=== PATIENT | female | born 1995 | race Caucasian/White ===

== ENCOUNTER 2019-11-28 12:31 | Emergency (ER) | payer OTHER, SELFPAY ==
[2019-11-28 12:42] VITALS: BP 134/96; PULSE 82; RESP 16; TEMP 36.3; O2SAT 99
--- NOTE | 2019-11-28 13:07 | ED.SKABFB ---
HPI - Skin/Abscess/Foreign Bdy General Chief complaint: Skin/Abscess/Foreign Body Stated complaint: rash Time Seen by Provider: 11/28/19 13:07 Source: patient Mode of arrival: ambulatory Limitations: no limitations History of Present Illness HPI narrative: Daysi Mederos is a 24 yo female with a PMH of diabetes and depression who comes to express care for check bite that occurred 3 weeks ago. She pulled the tick off and has developed a rash in last week for the spreading, enlarging, pruritic. Related Data Home Medications Medication Instructions Recorded Confirmed fluoxetine 20 mg PO DAILY 11/28/19 11/28/19 metformin 500 mg PO DAILY 11/28/19 11/28/19 Allergies Allergy/AdvReac Type Severity Reaction Status Date / Time No Known Allergies Allergy Unverified 09/24/15 22:53 Review of Systems Review of Systems: Narrative: CONSTITUTIONAL: Denies fever, chills, sweats. EYES: Denies visual changes, redness, discharge. ENT: Denies rhinorrhea, congestion, sore throat, otalgia. CARDIOVASCULAR: Denies chest pain, palpitations, edema. RESPIRATORY: Denies dyspnea, wheezing, cough GASTROINTESTINAL: Denies abdominal pain, nausea, vomiting, diarrhea. GENITOURINARY: Denies dysuria, hematuria, abnormal discharge SKIN: Denies rash or itching. Spreading enlarging rash inside tick bite NEUROLOGIC: Denies numbness, or focal weakness. PSYCHIATRIC: Denies anxiety or depression. PMFSH Past Medical History Medical History Depression Diabetes Family History Family History Other Diabetes mellitus Social History Social History Smoking status: Never smoker Alcohol intake: current Gender identity (if verbalized by the patient): Female Comments At time of signature, I agree with nursing past medical, surgical, social and family history. There is no relevant family history pertinent to the presenting complaint. This patient states blood pressure is elevated unusually today he has regular follow-up with primary care physician Exam Narrative: Exam Narrative: GENERAL: This is a well-nourished, well-developed patient, in mild distress. HEAD: normocephalic, atraumatic. EYES: If you feel like that we are reinforcing to go in there that she should be checking her blood sugar she says she forgets a lot sclera clear/white. Vision is grossly intact. EARS: External ears normal. Hearing grossly intact. NOSE: External nose normal without nasal discharge, nares without redness, no rhinorrhea. THROAT: Mucous membranes moist, Neck: non-tender CARDIOVASCULAR: Regular rate and rhythm without murmurs, gallops, or rubs. RESPIRATORY: Clear to auscultation. Breath sounds equal bilaterally. No wheezes, rales, or rhonchi. GASTROINTESTINAL: Abdomen soft, non-tender, SKIN: warm, intact with bull's-eye rash on mid back, it is pruritic. About 5 x 6, 2 areas NEURO: awake, alert, and oriented to person, place and time. There were no obvious focal neurologic abnormalities. Steady gait EXTREMITIES: Normal range of motion. BACK: Nontender without deformity Course Course Emergency Course: Discussed with patient possible causes and started on doxycycline 100 mg 1 twice daily x14 days Monitor temperature and use Benadryl lotion for itching Follow-up with PCP-checking blood sugar, discussed with her Vital Signs Vital signs: Vital Signs Temperature 97.3 F L 11/28/19 12:42 Pulse Rate 82 11/28/19 12:42 Respiratory Rate 16 11/28/19 12:42 Blood Pressure 134/96 H 11/28/19 12:42 Pulse Oximetry 99 11/28/19 12:42 Temperature 97.3 F L 11/28/19 12:42 Pulse Rate 82 11/28/19 12:42 Respiratory Rate 16 11/28/19 12:42 Blood Pressure 134/96 H 11/28/19 12:42 Pulse Oximetry 99 11/28/19 12:42 MDM - Skin/Abscess/Foreign Bdy Differential Diagnosis Differential diag
== END 2019-11-28 13:27 | disposition home or self-care (01) ==
PROVIDERS: Emergency Provider Nurse Practitioner; PCP Emergency Medicine
DX: S30.860A Insect bite (nonvenomous) of lower back and pelvis, initial encounter (principal); W57.XXXA Bitten or stung by nonvenomous insect and other nonvenomous arthropods, initial encounter; F32.9 Major depressive disorder, single episode, unspecified; E11.9 Type 2 diabetes mellitus without complications
CPT/HCPCS: 99213; G0463

== ENCOUNTER 2022-11-22 17:52 | Emergency (ER) | payer OTHER, MEDICAID, SELFPAY ==
[2022-11-22 17:52] VITALS: BP 138/80; PULSE 92; RESP 18; TEMP 36.9; O2SAT 99
[2022-11-22 17:54] VITALS: BP 138/80; PULSE 101; RESP 19; TEMP 36.9; O2SAT 98
--- NOTE | 2022-11-22 18:03 | ED.SKABFB ---
HPI - Skin/Abscess/Foreign Bdy General Chief complaint: Unspecified Stated complaint: Thrush/yeast infection Time Seen by Provider: 11/22/22 17:53 Source: patient and RN notes reviewed Mode of arrival: ambulatory Limitations: no limitations History of Present Illness HPI narrative: Patient states that she used was on Macrobid for as an antibiotic for possible UTI but then was also diagnosed with bacterial vaginosis and did a 2nd antibiotic. She now has a white vaginal discharge and itching a of her labia. She also has a thick white film in her mouth consistent with thrush. complaint: rash Onset (ago): day(s) (2) Tetanus up to date: yes Location: generalized (mouth) Severity: moderate Quality: burning and dull Pain Consistency: constant Relieving factors: none Exacerbating factors: none Context: recent illness Associated symptoms: denies other symptoms Treatments prior to arrival: none Related Data Allergies Allergy/AdvReac Type Severity Reaction Status Date / Time No Known Allergies Allergy Verified 11/22/22 18:09 [facility] Past Medical History Medical History (Updated 11/22/22 @ 18:47 by Randy Perez MD) Depression Diabetes Surgical History Surgical History (Updated 11/22/22 @ 18:47 by Randy Perez MD) History of section Hx of cholecystectomy Family History Family History Other Diabetes mellitus Social History Social History Smoking status: Never smoker Alcohol intake: current Gender identity (if verbalized by the patient): Female Exam Const: General: healthy appearing, no acute distress and alert Nutritional Appearance: well nourished Orientation/consciousness: patient oriented x3 Limitations: no limitations Other: Female tech in the room during examination. HENMT: Head: normal to inspection Ears: external ears normal Face/Nose/Sinus: Normal external nose present Face and sinus: normal facial exam Mouth: Yes Abnormal oral and palatal mucosa present erythematous and white patches and Yes tongue abnormal with white coating Eyes: Conjunctivae: conjunctivae normal Pupils: Equal, round and reactive pupils present EOM: EOMs intact bilaterally Neck: Neck: normal visual inspection Resp: Effort & Inspection: normal respiratory effort Auscultation: clear to auscultation bilaterally Cardio: Rate: regular rate Rhythm: regular rhythm GI: Auscultation: normal bowel sounds Back/Spine/Pelvis: Cervical Spine: cervical ROM normal Thoracic/Lumbar Spine: thoraco-lumbar ROM normal Skin: General skin exam: normal color Neuro: General: patient oriented x3, moves all extremities, no focal motor deficits and CN's II-XI intact bilaterally Speech: normal speech Gait exam (Neuro): Normal gait present Extrem: General: normal to inspection and no clubbing, cyanosis or edema Psych: Mental Status: mental status grossly normal Affect: normal affect Attitude: cooperative Course Vital Signs Vital signs: Vital Signs Temperature 36.9 C 11/22/22 17:54 Pulse Rate 101 H 11/22/22 17:54 Respiratory Rate 11/22/22 17:54 Blood Pressure 138/80 11/22/22 17:54 Pulse Oximetry 98 11/22/22 17:54 Oxygen Delivery Room Air 11/22/22 17:54 Temperature 36.9 C 11/22/22 17:54 Pulse Rate 101 H 11/22/22 17:54 Respiratory Rate 11/22/22 17:54 Blood Pressure 138/80 11/22/22 17:54 Pulse Oximetry 98 11/22/22 17:54 Oxygen Delivery Room Air 11/22/22 17:54 MDM - Skin/Abscess/Foreign Bdy Differential Diagnosis Differential diagnosis: Likely other ( oral candidiasis and vaginal candidiasis due to antibiotics.) Discharge Plan Discharge Clinical Impression: Candidiasis of vagina, Oral thrush Patient Disposition: Home, Self-Care Condition: Stable Instructions: Oral Candidiasis (ED), Yeast Infection (ED) Prescriptions: N
== END 2022-11-22 18:20 | disposition home or self-care (01) ==
LOC: CHSED 18:14
PROVIDERS: Emergency Provider Emergency Medicine; PCP Emergency Medicine
DX: B37.31 Acute candidiasis of vulva and vagina (principal); B37.0 Candidal stomatitis; E11.9 Type 2 diabetes mellitus without complications
CPT/HCPCS: 99283

== ENCOUNTER 2024-09-08 17:40 | Emergency (ER) | payer SELFPAY ==
--- NOTE | ~2024-09-08 | CT_ITS ---
EXAMINATION: CT brain wo con DATE: 09/08/2024 18:14 INDICATION: head injury . TECHNIQUE: Computed tomography (CT) of the head was performed without intravenous contrast. The mA wa s adjusted according to patient size. Iterative reconstruction technique was employed. The dose-lengt h product was 605.33 mGy-cm. COMPARISON: None. FINDINGS: No acute intracranial hemorrhage or extra-axial fluid collection. No hydrocephalus, mass, or herniation. No acute ischemic infarct. Unremarkable dural venous sinus attenuation. No acute osseous abnormality. The aerated spaces are clear. IMPRESSION: No acute intracranial process. Reviewed, dictated and finalized at location K.
[2024-09-08 17:40] VITALS: BP 139/91; PULSE 107; RESP 18; TEMP 36.6; O2SAT 100
--- OUTSIDE RECORDS SUMMARY | 2024-09-08 17:48 | XMS_ITS | Data Portability ---
Author Organization [facility] TEEClari Chavez Address [address] [place] [address] Assessment Encounter Date Assessment Date Assessment LastModified by Organization Details LastModified Time 01/28/2018 01/28/2018 Almost 37 weeks, doing well with sugar control, repeat c/s on 02/18 Not available 01/28/2018 14:45:57 02/04/2018 02/04/2018 Almost 38 weeks, sugars stable, repeat c/s in 2 weeks per pt request weekly NSTs Not available 02/04/2018 15:58:18 02/11/2018 02/11/2018 c/s BTL in 1 week, NST this week for diabetes f/u Not available 02/11/2018 15:08:37 02/22/2018 02/22/2018 ramiro out, steri-strips on, incision looks great f/u 1 week Not available 02/22/2018 14:42:43 03/18/2018 03/18/2018 Discussed PPD. No SI/HI, but occ tearful, occ overwhelmed will try some prozac and come back in a week for f/u and PP exam Not available 03/18/2018 14:10:32 Plan of Treatment Reminders Order Date Submit Date Provider Last Modified By Organization Details Last Modified Time Details Appointments None recorded. Lab urinalysi s, dipstick 2017 018 In-Office Order, Internal Use Only DO Not Attach Compendium DO Not Attach Compendium, Do Not Delete/merge, [id number] 8 15:08:51 urinalysi s, dipstick 2017 018 In-Office Order, Internal Use Only DO Not Attach Compendium DO Not Attach Compendium, Do Not Delete/merge, [id number] 8 15:58:19 urinalysi s, dipstick 2017 018 In-Office Order, Internal Use Only DO Not Attach Compendium DO Not Attach Compendium, Do Not Delete/merge, [id number] 14:45:58 Referral None recorded. Procedures None recorded. Surgeries None recorded. Imaging None recorded. Medication Orders Prozac 20 mg capsule 2018 019 INTERFACE [facility] #[id number], [address], [place], [place], [id number], 9 14:10:39 Patient TargetsNo targets recorded. Patient Instructions Encounter Date Encounter Id Patient Instructions Last Modified By Organization Details Last Modified Time 02/04/2018 [id number] gestational diabetes: care instructions Not available 02/04/2018 15:58:19 02/11/2018 [id number] gestational diabetes: care instructions Not available 02/11/2018 15:08:51 03/18/2018 [id number] depression after childbirth: care instructions Not available 03/18/2018 14:10:33 stress in parent s of infants: care instructions Not available 03/18/2018 14:10:33 Reason for Referral None Reported. Results Created Date Observation Date Name Description Value Unit Range Abnormal Flag Note LastModifiedBy Organization Detail LastModifiedTime 02/12/20 18 02/11/2018 urina lysis , dipst ick Protein Trace Not Available In-Office Order Internal Use Only DO Not Attach Compendium DO Not Attach Compendium, Do Not Delete/merge, [id number] 02/11/2018 14:35:42 02/12/20 18 02/11/2018 urina lysis , dipst ick Glucose Negati ve Not Available In-Office Order Internal Use Only DO Not Attach Compendium DO Not Attach Compendium, Do Not Delete/merge, [id number] 02/11/2018 14:35:42 02/05/20 18 02/04/2018 urina lysis , dipst ick Protein Trace Not Available In-Office Order Internal Use Only DO Not Attach Compendium DO Not Attach Compendium, Do Not Delete/merge, [id number] 02/04/2018 15:48:34 02/05/20 18 02/04/2018 urina lysis , dipst ick Glucose Negati ve Not Available In-Office Order Internal Use Only DO Not Attach Compendium DO Not Attach Compendium, Do Not Delete/merge, [id number] 02/04/2018 15:48:34 01/29/20 18 01/28/2018 urina lysis , dipst ick Protein Negati ve Not Available In-Office Order Internal Use Only DO Not Attach Compendium DO Not Attach Compendium, Do Not Delete/merge, [id number] 01/28/2018 14:34:58 01/29/20 18 01/28/2018 urina lysis , dipst ick Glucose Negati ve Not Available In-Office Order Internal Use Only DO Not Attach Compendium DO Not Attach Compendium, Do Not Delete/merge, [id number] 01/28/2018 14:34:58 01/15/20 18 01/14/2018 urina lysis , dipst ick Protein Negati ve Not Available In-Office Order Internal Use Only DO Not Attach Compendium DO Not Attach Compendium, Do Not Delete/merge, [id number] 01/14/2018 14:53:01 01/15/20 18 01/14/2018 urina lysis , dipst ick Glucose Negati ve Not Available In-Office Order Internal Use Only DO Not Attach Compendium DO Not Attach Compendium, Do Not Delete/merge, [id number] 01/14/2018 14:53:01 01/01/20 18 12/31/2017 urina lysis , dipst ick Protein Negati ve Not Available In-Office Order Internal Use Only DO Not Attach Compendium DO Not Attach Compendium, Do Not Delete/merge, [id number] 12/31/2017 16:01:01 01/01/20 18 12/31/2017 urina lysis , dipst ick Glucose Negati ve Not Available In-Office Order Internal Use Only DO Not Attach Compendium DO Not Attach Compendium, Do Not Delete/merge, [id number] 12/31/2017 16:01:01 Result Notes None recorded. Problems No Known Problems Procedures Surgical History Date Name Laterality Status Provider Name and Address Organization Details Recorded Time 02/23/20 18 Suture/Staple removal completed Maikel Kang MD Attn: Accounting, [address] , [place], [address], [facility] 02/22/2018 14:42:19 04/22/19 18 Cholecystectomy completed Kaycee Parsons MA [facility] 09/19/2017 10:52:38 09/17/19 15 Caesarean Section completed Kaycee Parsons MA [facility] 09/19/2017 10:51:47 Imaging Results None recorded. Procedure Notes None recorded. Medical Equipment None Reported. Allergies No known drug allergies Medications Name Sig Start Date Stop Date Status Note LastModified by Organization Details LastModified Time metformin 500 mg tablet active Not Available Not Available Not Available nitrofuranto in macrocrystal 50 mg capsule active Not Available Not Available Not Available fluconazole 150 mg tablet active Not Available Not Available Not Available clarithromyc in 500 mg tablet active Not Available Not Available Not Available hydrocodone 5 mg-acetamino phen 325 mg tablet active Not Available Not Available Not Available metronidazol e 250 mg tablet active Not Available Not Available Not Available sulfamethoxa zole 800 mg-trimethop rim 160 mg tablet active Not Available Not Available Not Available terconazole 80 mg vaginal suppository Insert 1 suppository every day by vaginal route for 3 days. active Not Available Not Available No t Available Humulin R Regular U-100 Insulin 100 unit/mL injection solution active Not Available Not Available Not Available Prozac 20 mg capsule Take 1 capsule every day by oral route. 2018 active Not Available Not Available Not Avai lable Humulin N NPH U-100 Insulin (isophane susp) 100 unit/mL subcutaneous active Not Available Not Available Not Available omeprazole 20 mg capsule,momo yed release active Not Available Not Available Not Available insulin syringe U-100 with needle 1 mL 31 gauge x 07/18 active Not Available Not Available Not Available ibuprofen 600 mg tablet active Not Available Not Available Not Available nitrofuranto in monohydrate/ macrocrystal s 100 mg capsule Take 1 capsule every 12 hours by oral route for 7 days. active Not Available Not Available Not Available metformin active Not Available Not Noreen ilable Not Available OneTouch Ultra2 Meter kit active Not Available Not Available Not Available BD Insulin Syringe Ultra-Fine (half unit) 0.3 mL 31 gauge x 5/16 use four times a day 2017 active Not Available Not Available Not Avai lable RhoGAM Ultra-Filter ed PLUS 1,500 unit (300 mcg) intramuscula r syringe Inject 1 syringe by intramuscul ar route. 2017 active Not Available Not Available Not Avai lable OneTouch Delica Lancets 33 gauge active Not Available Not Available Not Available 28 mg iron-800 mcg tablet active Not Available Not Available N ot Available OneTouch Verio test strips active Not Available Not Available Not Available OneTouch Delica Lancets 30 gauge active Not Available Not Available Not Available BD Insulin Syringe Ultra-Fine 0.3 mL 31 gauge x 5/16 active Not Available Not Available Not Available Blisovi 24 Fe 1 mg-20 mcg (24)/75 mg (4) tablet active Not Available Not Available Not Available OneTouch Ultra Blue Test Strip active Not Available Not Available N ot Available Vitals Date Recorded Body height Body mass index (BMI) Body weight Systolic And Diastolic Provider Name and Address Organization Details Last Updated DateTime 03/18/2018 170.18 cm 38.7 kg/m2 247882.75 g 106/73 mm[Hg] Kaycee Parsons MA [facility] 03/18/2018 14:03:05 Date Recorded Body weight Provider Name an d Address Organization Details Last Updated DateTime 01/28/2018 [id number] francia Kang MD Attn: Accounting,[address] [place], [address], [facility] 01/28/2018 14:45:29 Date Recorded Body height Body mass index (BMI) Systolic And Diastolic Provider Name and Address Organization Details Last Updated DateTime 01/28/2018 170.18 cm 39.3 kg/m2 116/72 mm[Hg] Kaycee Parsons MA [facility] 01/28/2018 14:34:41 Date Recorded Body weight Provider Name an d Address Organization Details Last Updated DateTime 02/04/2018 242697.432703 g Maikel Kang MD Attn: Accounting,[address] [place], [address], [facility] 02/04/2018 15:57:29 Date Recorded Body height Body mass index (BMI) Systolic And Diastolic Provider Name and Address Organization Details Last Updated DateTime 02/04/2018 170.18 cm 40.1 kg/m2 122/82 mm[Hg] Kaycee Parsons MA [facility] 02/04/2018 15:51:25 Date Recorded Body weight Provider Name an d Address Organization Details Last Updated DateTime 02/11/2018 599640.896545 g Maikel Kang MD Attn: Accounting,[address] [facility], [place], [address], [facility] 02/11/2018 15:08:03 Date Recorded Body height Body mass index (BMI) Systolic And Diastolic Provider Name and Address Organization Details Last Updated DateTime 02/11/2018 170.18 cm 40.7 kg/m2 112/82 mm[Hg] Kaycee Parsons MA [facility] 02/11/2018 14:35:31 Date Recorded Body height Body mass index (BMI) Body weight Systolic And Diastolic Provider Name and Address Organization Details Last Updated DateTime 02/22/2018 170.18 cm 40.2 kg/m2 369715.52 0616 g 126/82 mm[Hg] Kaycee Parsons MA [facility] 02/22/2018 13:58:39 Social History Question Answer Notes LastModified by Organizat ion Details LastModified Time Tobacco Smoking Status Never Smoker Kaycee Parsons MA null, [facility] 09/19/2017 10:51:32 What Was The Date Of Your Most Recent Tobacco Screening? 09/19/2017 Information n ot available 09/26/2018 Sex: Unknown Functional Status None recorded. Mental Status None recorded. Family History Nothing Reported Notes:No Hx. of breast CA Medical History Condition Response Diabetes Y Gynecological History Statement/Question Response Current Control Method Breastfeedi ng/HEADLEY LMP Definite Obstetrics History GPAL:G 2 P 2 0 0 2 Type Value Full Term 2 Living 2 Total 2 Immunizations Vaccine Type Date Status Note Provider Nam e and Address Organization Details Recorded Time Tdap 01/14/2018 completed Not Available [facility] 03/22/2019 02:43:37 Past Encounters Encounter ID Performer Location Encounter Start Date Encounter Closed Date Diagnosis/Indication Diagnosis SNOMED-CT Code Diagnosis ICD10 Code Diagnosis Note [id number] MD Renzo Barillas 14 [address] [facility] [place] [address] 09/19/2017 10:17:13 09/20/2017 12:55:10 Normal 77084511 Z34.82 Past pregn mathieu history of section 726026233 Z98.602 [id number] MD Renzo Barillas 14 OB [address] [facility] [place] [address] 10/22/2017 15:14:55 10/25/2017 12:36:08 Normal 39032891 Z34.82 [id number] MD Renzo Barillas 14 OB [address] [facility] [place] [address] 11/06/2017 14:06:21 11/08/2017 10:57:33 Normal 76305412 Z34.82 Past pregn mathieu history of section 982196194 Z98.235 [id number] MD Renzo Barillas 14 OB [address] [facility] [place] [address] 11/20/2017 14:27:40 11/21/2017 16:44:17 Normal 01203105 Z34.82 Past pregn mathieu history of section 783545073 Z98.990 [id number] MD Renzo Barillas 14 OB [address] [facility] [place] [address] 12/14/2017 11:33:32 12/17/2017 12:34:30 RhD negative 602514243 Z01.83 Normal 2701442 2 Z34.82 Gestationa l diabetes mellitus 02905866 O24.307 [id number] MD Renzo Barillas 14 OB [address] [facility] [place] [address] 12/31/2017 15:38:47 12/31/2017 16:21:03 Normal 08618290 Z34.82 Past pregn mathieu history of section 854698417 Z98.890 Gestationa l diabetes mellitus 86059884 O24.172 [id number] MD Renzo Barillas 14 OB [address] [facility] [place] [address] 01/14/2018 14:34:08 01/18/2018 17:06:50 Administration of diphtheria, pertussis, and tetanus vaccine 439545785 Z23 Normal 2628897 2 Z34.82 Past pregn mathieu history of section 228082544 Z98.508 [id number] MD Renzo Barillas 14 OB [address] [facility] [place] [address] 01/28/2018 14:16:29 01/29/2018 16:42:39 Normal 04290537 Z34.82 [id number] MD Renzo Barillas 14 OB [address] [facility] [place] [address] 02/04/2018 15:13:48 02/04/2018 16:29:45 Normal 29548138 Z34.82 Gestationa l diabetes mellitus 23732629 O24.374 [id number] MD Renzo Barillas 14 OB [address] [facility] [place] [address] 02/11/2018 14:08:37 02/12/2018 10:12:59 Normal 83480335 Z34.82 Past pregn mathieu history of section 996851806 Z98.890 Gestationa l diabetes mellitus 17291174 O24.030 [id number] MD Renzo Barillas [address] [place] [address] [place] [address] 02/22/2018 13:43:21 02/22/2018 14:43:19 Removal of ramiro 07881552 Z48.02 [id number] MD Renzo Barillas 14 OB [address] [facility] [place] [address] 03/18/2018 13:50:43 03/21/2018 09:06:30 depression 97873218 F53.0 Health Concerns Section Related Observation LastModified by Organization Detai ls LastModified Time None Recorded Concern Status LastModified by Organization Details LastModified Time None Recorded Advance Directives Directive None Recorded Payers Insurance Date Sequence Insurance Name Policy Number Policy Irvin Covered Member ID Irvin Member ID Guarantor Name 12/20/2018 1 [facility] - DOS PRIOR TO 2020 (MEDICAID REPLACEMENT - HMO) Daysi Mederos [id number] Daysi Mederos 10/22/2017 1 *SELF PAY* Memo Mederos 09/19/2017 SLIDING FEE SCHEDULE - DISCOUNT Daysi Mederos 12/04/2017 1 [place] Daysi Mederos [id number] Daysi Mederos 10/22/2017 1 [facility] (MEDICAID HMO) Daysi Mederos [id number] Daysi Mederos 10/22/2017 1 [facility] (MEDICAID HMO) Daysi Mederos [id number] Daysi Mederos 03/15/2018 1 [facility] (MEDICAID HMO) Daysi Mederos [id number] Daysi Mederos OBGyn Episode Ob Episode Information Episode Created Date Number of Fetuses Patient Bloodtype Patient rh Status Prepregnancy Weight lbs Domestic Partner Domestic Partner Phone Father Name Driver Courier Status 09/20/19 18 1 O Negative [facility] CLOSED Fetus Data First Name Last Name Admitted to NICU Weight (g) Sex Living Outcome Pediatric Complications Fetus ID Race Codes Race Delivery Type Alcon Moler false [phone] 5 F true Full Term [id number] White Helder Calculation Initial Helder Date Initial Exam Date Initial Exam Provider Initial Ultrasound Date Last Menstrual Period Date Ultra Sound Weeks Gestation 02/19/2018 09/19/2017 10/31/2017 05/15/2017 24 Eighteen To Twenty Week Helder Update Ultra Sound Date Fundal Height At Umbil Quickening Date Ultra Sound Latest Weeks Gestation Final Helder Confirmed By Final Helder Confirmed Date Final Helder Date Ultra Sound Latest Days Gestation 0 [email or web address] 02/21/2018 02/20/20 18 0 Pre-patricia Flowsheet Flowsheet Date 09/19/2017 Peterson Score Blood Edema Fundus Height Fundus Units Glucose Ketones Leukocytes Nitrite Labor Signs Protein Cervic Dilation Cervic Effacement Cervic Station 15 wks Type Weight in lbs Pre/Post Dialysis Refused Weight 243.936079024250 BP Diastolic BP Location Tested BP Systolic BP Type 76 118 sitting Fetus Heart Rate Present A 154 Present Fetus Movement Comments Hx of previous c/s - plan re peat at 39 weeks this time.Currently self pay - awaiting medical card.Exam more c/s 14-15 weeks than 18 ; pt. does have hx of irregular periodswill get labs from previous place, possibly get US after medical card arranged Flowsheet Date 10/22/2017 Peterson Score Blood Edema Fundus Height Fundus Units Glucose Ketones Leukocytes Nitrite Labor Signs Protein Cervic Dilation Cervic Effacement Cervic Station 20 wks Type Weight in lbs Pre/Post Dialysis Refused Weight 242.055461546884 BP Diastolic BP Location Tested BP Systolic BP Type 76 112 sitting Fetus Heart Rate Present A 145 Present Fetus Movement A Yes Comments Will redo labs today as we tayler daley never received any from previous [facility] diabetes center visit, was apparently diagnosed as diabetic and put on metformin in past. Off it since lost medical card. Says she occ. has a 250 post prandial sugar. Flowsheet Date 11/06/2017 Peterson Score Blood Edema Fundus Height Fundus Units Glucose Ketones Leukocytes Nitrite Labor Signs Protein Cervic Dilation Cervic Effacement Cervic Station 24 wks Type Weight in lbs Pre/Post Dialysis Refused Weight 239.844485145051 BP Diastolic BP Location Tested BP Systolic BP Type 82 102 sitting Fetus Heart Rate Present A 155 Present Fetus Movement A Yes Comments Doing OK, seeing diabetes ce nter, likely insulin after daily sugar logs evaluatedGirl on US Flowsheet Date 11/20/2017 Peterson Score Blood Edema Fundus Height Fundus Units Glucose Ketones Leukocytes Nitrite Labor Signs Protein Cervic Dilation Cervic Effacement Cervic Station none 28 wks Type Weight in lbs Pre/Post Dialysis Refused Weight 238.680067975998 BP Diastolic BP Location Tested BP Systolic BP Type 76 108 sitting Fetus Heart Rate Present A 155 Present Fetus Movement A Yes Comments 27 weeks, will need some ins ulin started as all fastings over 110will start with 7R/10N in a.m. and 8 R/14N in p.m.Has been to diabetes center, no return apt yet scheduled Flowsheet Date 12/14/2017 Peterson Score Blood Edema Fundus Height Fundus Units Glucose Ketones Leukocytes Nitrite Labor Signs Protein Cervic Dilation Cervic Effacement Cervic Station none 30 cm none neg Type Weight in lbs Pre/Post Dialysis Refused Weight 241.742993233071 BP Diastolic BP Location Tested BP Systolic BP Type 76 116 sitting Fetus Heart Rate Present A 148 Present Fetus Movement A Yes Comments doing well, post prandials a ll in the 120sfastings still slightly over 100 ; will increase evening NPH to 16Nor 7r/10n in a.m. and 8r/16n in p.m. Flowsheet Date 12/31/2017 Peterson Score Blood Edema Fundus Height Fundus Units Glucose Ketones Leukocytes Nitrite Labor Signs Protein Cervic Dilation Cervic Effacement Cervic Station 31 cm Type Weight in lbs Pre/Post Dialysis Refused Weight 244.478330500847 BP Diastolic BP Location Tested BP Systolic BP Type 72 106 sitting Fetus Heart Rate Present A 155 Present Fetus Movement A Yes Comments doing well; all fastings und er 100, PPs less than 130keep insulin the same, sign BTL papers next time Flowsheet Date 01/14/2018 Peterson Score Blood Edema Fundus Height Fundus Units Glucose Ketones Leukocytes Nitrite Labor Signs Protein Cervic Dilation Cervic Effacement Cervic Station 33 cm Type Weight in lbs Pre/Post Dialysis Refused Weight 245.085456826317 BP Diastolic BP Location Tested BP Systolic BP Type 72 112 sitting Fetus Heart Rate Present A 141 Present Fetus Movement A Yes Comments doing well, fastings a littl e elevated 100-110 ; will increase evening to 10r/18nleave a.m. same at 7r/10nStart weekly NSTs next weeksigned BTL papers, wants repeat c/s 02/18 ( mom bday) Flowsheet Date 01/28/2018 Peterson Score Blood Edema Fundus Height Fundus Units Glucose Ketones Leukocytes Nitrite Labor Signs Protein Cervic Dilation Cervic Effacement Cervic Station none 34 cm none neg Type Weight in lbs Pre/Post Dialysis Refused Weight 251.27615564842 BP Diastolic BP Location Tested BP Systolic BP Type 72 116 sitting Fetus Heart Rate Present A 141 Present Fetus Movement A Yes Comments doing well, fastings all sti ll under 100.NST weekly until delivery, repeat scheduled for 02/18 Flowsheet Date 02/04/2018 Peterson Score Blood Edema Fundus Height Fundus Units Glucose Ketones Leukocytes Nitrite Labor Signs Protein Cervic Dilation Cervic Effacement Cervic Station 35 cm Type Weight in lbs Pre/Post Dialysis Refused Weight 255.996157091220 BP Diastolic BP Location Tested BP Systolic BP Type 82 122 sitting Fetus Heart Rate Present A 144 Present Fetus Movement A Yes Comments doing well, 2 weeks til repe at c/s ( her picked date), sugars stable, weekly NSTs Flowsheet Date 02/11/2018 Peterson Score Blood Edema Fundus Height Fundus Units Glucose Ketones Leukocytes Nitrite Labor Signs Protein Cervic Dilation Cervic Effacement Cervic Station 36 wks Type Weight in lbs Pre/Post Dialysis Refused Weight 259.621544937929 BP Diastolic BP Location Tested BP Systolic BP Type 82 112 sitting Fetus Heart Rate Present A 140 Present Fetus Movement A Yes Comments doing well, sugars under goo d control, nothing over 130 after eating, fastings less than 100. NST last week was good, will do another one before weekend.Repeat c/s is a week from today. Flowsheet Date 02/22/2018 Peterson Score Blood Edema Fundus Height Fundus Units Glucose Ketones Leukocytes Nitrite Labor Signs Protein Cervic Dilation Cervic Effacement Cervic Station Type Weight in lbs Pre/Post Dialysis Refused With clothes 256.999003936816 BP Diastolic BP Location Tested BP Systolic BP Type 82 126 sitting Fetus Heart Rate Present Fetus Movement Comments Menstrual History Last Menstrual Date Menses Monthly On Bcp Conception Prior Menses Frequency Hcg Plus Date Menarche Onset Age 0305/15/2017 Delivery Information Delivery Date Delivery Type Labor Anesthesia Weeks Gestation Incision Type Labor Labor Length Hrs Delivered By Post Complications Tubal Sterilization Discharge Date Comments 8 Induce d [facility] 39.6 [address] e false Dr. Maikel Kang true 02/20/2018 Discharge Information Feeding Method Contraceptive Method Maternal HG B and HCT Levels Breast Ob Episode Information Episode Created Date Number of Fetuses Patient Bloodtype Patient rh Status Prepregnancy Weight lbs Domestic Partner Domestic Partner Phone Father Name Driver Courier Status 09/20/19 18 1 CLOSED Fetus Data First Name Last Name Admitted to NICU Weight (g) Sex Living Outcome Pediatric Complications Fetus ID Race Codes Race Delivery Type 3742.13 4 M Full Term [id number] Helder Calculation Initial Helder Date Initial Exam Date Initial Exam Provider Initial Ultrasound Date Last Menstrual Period Date Ultra Sound Weeks Gestation 0 Eighteen To Twenty Week Helder Update Ultra Sound Date Fundal Height At Umbil Quickening Date Ultra Sound Latest Weeks Gestation Final Helder Confirmed By Final Helder Confirmed Date Final Helder Date Ultra Sound Latest Days Gestation 0 0 Menstrual History Last Menstrual Date Menses Monthly On Bcp Conception Prior Menses Frequency Hcg Plus Date Menarche Onset Age Delivery Information Delivery Date Delivery Type Labor Anesthesia Weeks Gestation Incision Type Labor Labor Length Hrs Delivered By Post Complications Tubal Sterilization Discharge Date Comments 5 Umbilica l cord wrapped around baby's leg Discharge Information Feeding Method Contraceptive Method Maternal HG B and HCT Levels
--- OUTSIDE RECORDS SUMMARY | 2024-09-08 17:48 | XMS_ITS | Continuity of Care Document ---
Author Organization [facility] Address [address] [place] [address] [place] [address] Phone Care Team Providers Care Rigging And Controls Aircraft Mechanic Name Role Phone Ej Engel MD Unavailable Unavailable Allergies, Adverse Reactions, Alerts Substance Reaction Status Criticality No Known Allergies Active No Inform ation Medications Medication Instructions Dosage Effective Dates (start - stop) Status Comments Flagyl 500 mg tablet take 1 Tablet by or al route 2 times every day 0.5 G - Active Diflucan 150 mg tablet take 1 tablet by oral route once - Active Procedures Procedure Date OFFICE/OUTPATIENT VISIT, EST Advance Directives Directive Yes / No Effective Date File Name No Information Encounters Encounter Description Practice Location Reason(s) For Visit Diagnoses Date Provider Providers Copied on Encounter OFFICE/OUTPA TIENT VISIT, EST [facility], [address] [place], [id number], [place] tel:[phone] [facility] vaginal itching1 (chief complaint)p ainful inercourse (chief complaint) Other specified noninflammatory disorders of vaginaDyspareunia not due to a substanceGoiter [address], [place], [id number] , [place]. tel:[phone] Family History Family Member Type Diagnosis Age At Onset Brother Problem (finding) Alive and well Father Problem (finding) Alive and well Mother Problem (finding) Alive and well Payers Payer name Insurance type Covered constitution party ID Authoriza tion(s) No Information Social History Type Description Quantity Date Captured Comments Alcohol Use Details No Caffeine Use Details Unknown Tobacco Use Status Never smoked tobacco 2015 Smoking Status Never smoker Non-Smoking Tobacco Use Details : No Details Available : No Details Available Sex Female Vital Signs Date / Time: Height Weight BMI Pulse Rate Blood Pressure Temperature Respiratory Rate Body Surface Area Head Circumference BMI percentile Pulse Ox Inhaled Ox 12:59 PM 67.00 in 288.00 lbs 45.1 1 kg/m eter (2) 72 /min 127/86 mm[Hg] 98.6 F 16 /min Chief Complaint And Reason For Visit From encounter dated '02/11/2016 12:58'. vaginal itching1 (chief complaint). Description: Pt c/o vaginal itching and burning for 2 months Ptdenies any vaginal blisters, Pt notices foul smelling vaginal discharge Pt took OTC vaginal yeats infection meds but did not help. Pt denies any abd pain. Pt notices urinary frequency and urgency fortwo months ago. Pt notices burning with urination. Pt denies any other complaints. Pt denies any pelvic pain or bleeding painful inercourse (chief complaint). Description: PT c/o painful intercourse for one year. Pt talked to her ROOF CEMENT AND PAINT MAKER HELPER but nothing was done. Pt currently is not on any cotntrol. Pt used to take impanon but she just got it rmoved due to weight gain. Last intercourse one month ago. Plan Of Treatment Date Type Action Status Referral Ordered: US THYROID ordered History Of Present Illness Encounter Date Complaint History Of Prese nt Illness vaginal itching1 Pt c/o vaginal itching and burning for 2 months Pt denies any vaginal blisters, Pt notices foul smelling vaginal discharge Pt took OTC vaginal yeats infection meds but did not help. Pt denies any abd pain. Pt notices urinary frequency and urgency for two months ago. Pt notices burning with urination. Pt denies any other complaints. Pt denies any pelvic pain or bleeding painful inercourse PT c/o painfu l intercourse for one year. Pt talked to her ROOF CEMENT AND PAINT MAKER HELPER but nothing was done. Pt currently is not on any cotntrol. Pt used to take impanon but she just got it rmoved due to weight gain. Last intercourse one month ago. Instructions Date Instruction Additional Infor mation Prescribed Activity and Exercise Education Related to Dietary Surveillance and Counseling Prescribed Diet Educ ation/Lifestyle Education Regarding Diet Related to Dietary Surveillance and Counseling Assessments Type Assessment Date assessment Other specified noninflammatory disorders of vagina assessment Dyspareunia not due to a substan ce assessment Goiter Mental Status Date Cognitive Assessment Orientation - [place] ed to time, place, person, situation.
--- OUTSIDE RECORDS SUMMARY | 2024-09-08 17:48 | XMS_ITS | Clinical Summary ---
Author Organization [facility] Address [address] [place] [address] Phone Care Team Providers Care Pattern Chain Builder Name Role Phone Roland Locke MD Primary Care Provider Social History Tobacco Use Types Packs/Day Years Used Date Smoking Tobacco: Never Assessed Comments Unknown Sex and Gender Information Value Date Recorded Sex Assigned at Not on file Legal Sex Female 4:01 PM CDT Gender Identity Not on file Sexual Orientation Not on file Plan of Treatment Health Maintenance Due Date Last Done Comments Hepatitis C Virus (HCV) Screening 1994 Human Papillomavirus (HPV) Immunization (1 - 3-dose series) 2009 SARS-COV-2 Immunization ( season) 2023 Influenza Immunization (Season Ended) 2024 01/18/2011 Respiratory Syncytial Virus (RSV) Immunization (Adult) (1 - 1-dose 75+ series) 2069 Hepatitis B Immunization Completed 995, 1994, 1994 DTaP/Tdap/Td Immunization Discontinued 2008, 10/10/1999, 06/29/1997, Additional history exists TdaP Immunization Completed 08/27/2008 Meningococcal Immunization (ACWY) Completed 01/18/2011 Pneumococcal Immunization Combined Aged Out No longer eligible based on patient's age to complete this topic Rotavirus Immunization Aged Out No lo nger eligible based on patient's age to complete this topic Insurance [place]ID [place] [id number] Care Teams Pattern Chain Builder Relationship Specialty Start Date End Date Roland Locke MD [address] [address] PCP - General Family Medicine 10/26/17
--- OUTSIDE RECORDS SUMMARY | 2024-09-08 17:48 | XMS_ITS | Clinical Summary ---
Author Organization [facility] Address [address] [place] [address] Care Team Providers Care Educator Senior Clinical Name Role Phone Roland Locke MD Primary Care Provider [phone] Mai Koroma RN Unavailable Unavailable Source Comments [facility],non-owned Affiliates and Associated Physician Practices is amultiple site organization consisting of ambulatory clinics and hospital sitesin [place], [place], [place] and [place]. This disclosure is being madepursuant to the Care Everywhere program and may not contain all information available regarding this patient. Last updated 17.[facility] Allergies No known active allergies Medications * This document contains information received from the source organization and may not represent a complete record from that organization. * Be aware that medications may not be up to date on this document. Alwaysverify current medications with the patient. metFORMIN CR osmotic 24hr (FORTAMET) 500 MG (OSM) tablet Take 500 mg by mouth daily with dinner Active HYDROcodone-perez taminophen (NORCO) 5-325 MG tablet Take 1-2 tablets by mouth every 4 hours as needed for Pain 30 tablet 04/23/2017 Active clarithromycin (BIAXIN) 500 MG tablet Take 500 mg by mouth BID. 03/07/2017 Active metFORMIN (GLUCOPHAGE) 500 MG tablet Take 500 mg by mouth 2 times daily with morning and evening meal. 03/07/2017 Active omeprazole EC (PRILOSEC OTC) 20 MG tablet Take by mouth. 03/07/2017 Active Social History Tobacco Use Types Packs/Day Years Used Date Smoking Tobacco: Every Day Cigarettes Smokeless Tobacco: Never Tobacco Cessation:Ready to Q uit: No; Counseling Given: Yes Alcohol Use Standard Drinks/Week Comments No 0 (1 standard drink = 0.6 oz pur e alcohol) Comments No Sex and Gender Information Value Date Recorded Sex Assigned at Not on file Legal Sex Female 7:46 PM FISHERMAN HELPER Gender Identity Not on file Sexual Orientation Not on file Last Filed Vital Signs Vital Sign Reading Time Taken Comments Blood Pressure 108/63 04/23/2017 11:56 AM FISHERMAN HELPER Pulse 52 04/23/2017 11:56 AM FISHERMAN HELPER Temperature 36.7 C (98.1 F) 04/23/2017 11:56 AM FISHERMAN HELPER Respiratory Rate 16 04/23/2017 11:5 6 AM FISHERMAN HELPER Oxygen Saturation 99% 04/23/2017 11: 56 AM FISHERMAN HELPER Inhaled Oxygen Concentration - - Weight 118.1 kg (260 lb 4.8 oz) 04/23/2017 5:41 AM FISHERMAN HELPER Height 170.2 cm (5' 7) 04/23/2017 5:41 AM FISHERMAN HELPER Body Mass Index 40.77 04/23/2017 5:41 AM FISHERMAN HELPER Plan of Treatment Health Maintenance Due Date Last Done Comments HIV SCREENING 2009 HEPATITIS C SCREENING 08/02/2012 DTAP/TDAP/TD VACCINES (1 - Tdap) 2013 HEPATITIS B VACCINE (1 of 3 - 19+ 3-dose series) 2013 COVID-19 VACCINE (1 - 2023-2 5 season) 2023 DEPRESSION SCREENING 03/05/2024 INFLUENZA VACCINE (Season Ended) 2024 ZOSTER VACCINE (1 of 2) 2044 HIB VACCINE Aged Out No longer eligi ble based on patient's age to complete this topic HPV VACCINE Aged Out No longer eligi ble based on patient's age to complete this topic MENINGOCOCCAL (Group B) VACC INE SHARED DECISION-MAKING Aged Out No longer eligibl e based on patient's age to complete this topic MENINGOCOCCAL GROUPS A/C/Y/W VACCINE Aged Out No longer eligible b ased on patient's age to complete this topic PNEUMOCOCCAL VACCINE Aged Out No long er eligible based on patient's age to complete this topic Insurance HEALTH PLAN Care Teams Educator Senior Clinical Relationship Specialty Start Date End Date Roland Locke MD [address] [place] [id number] PCP - General Family Medicine 04/23/17 Mai Koroma, RN Registered Nurse 04/23/17
--- NOTE | 2024-09-08 18:01 | ECG_ITS ---
Test Date: 2024-09-08 18:27:19 Measurements Intervals [place] Rate: 76 P: 36 NC: 142 QRS: -28 QRSD: 99 T: -12 QT: 360 QTc: 406 Interpretive Statements SINUS RHYTHM Poor R wave progression No previous ECG available for comparison Electronically Signed On 09-08-2024 22:10:00 CDT by Hugo Stephenson M.D.
[2024-09-08 18:18] LABS: Hematocrit 43.4 % (35.0-49.0); Hemoglobin 14.4 g/dL (12.0-15.0); Immature Granulocyte Percent A 0.5 % (0.0-0.0); Lymphocytes Absolute Auto 2.40 K/mm3 (1.10-4.50); Mean Corpuscular HGB Conc 33.2 g/dL (32-36); Mean Corpuscular Hemoglobin 29.5 pg (27.0-31.0); Mean Corpuscular Volume 88.9 fL (78.0-102.0); Nucleated Red Blood Cells Absolute Auto 0.00 K/mm3 (0.00-0.00); Nucleated Red Blood Cells Perc 0.0 % (0-0.0); Platelet Count Result 277 K/mm3 (150-420); Red Blood Count 4.88 M/mm3 (4.20-5.40); White Blood Count 13.9 K/mm3 (4.8-10.8)
--- OUTSIDE RECORDS SUMMARY | 2024-09-08 18:24 | XMS_ITS | Continuity of Care Document ---
Author Organization [facility] Address [address] [place] [address] [place] [address] Phone Care Team Providers Care Shoe Fitter Name Role Phone Ej Engel MD Unavailable [...] Copied on Encounter OFFICE/OUTPA TIENT VISIT, EST [facility], [address] [place], [place], [id number], [place] tel:[phone] [facility] vaginal itching1 (chief complaint)p ainful inercourse (chief complaint) Other specified noninflammatory disorders of vaginaDyspareunia not due to a substanceGoiter [address], [place], [id number] , [place]. tel:[phone] Family History Family Member Type Diagnosis Age At Onset Brother Problem (finding) Alive and well Father Problem (finding) Alive and well Mother Problem (finding) Alive and well Payers Payer name Insurance type Covered republican ID Authoriza tion(s) No Information Social History [...] for one year. Pt talked to her INSTRUCTOR PHYSICAL but nothing was done. Pt currently is [...] for one year. Pt talked to her INSTRUCTOR PHYSICAL but nothing was done. Pt currently is [...] Mental Status Date Cognitive Assessment Orientation - [place] ed to time, place, person, situation.
--- OUTSIDE RECORDS SUMMARY | 2024-09-08 18:24 | XMS_ITS | Clinical Summary ---
Author Organization [facility] Address [address] [place] [address] Care Team Providers Care Document Processor Name Role Phone Roland Locke MD Primary Care Provider [phone] Mai Koroma RN Unavailable Unavailable Source Comments [facility],non-owned Affiliates and Associated Physician Practices is amultiple site organization consisting of ambulatory clinics and hospital sitesin [place]. This disclosure is being madepursuant to the Care Everywhere program and may not contain all information available regarding this patient. Last updated 17.[facility] Allergies No known active allergies Medications * [...] on file Legal Sex Female 7:46 PM PRODUCTION MACHINE SHOP SUPERVISOR Gender Identity Not on file Sexual Orientation Not on file Last Filed Vital Signs Vital Sign Reading Time Taken Comments Blood Pressure 108/63 04/23/2017 11:56 AM PRODUCTION MACHINE SHOP SUPERVISOR Pulse 52 04/23/2017 11:56 AM PRODUCTION MACHINE SHOP SUPERVISOR Temperature 36.7 C (98.1 F) 04/23/2017 11:56 AM PRODUCTION MACHINE SHOP SUPERVISOR Respiratory Rate 16 04/23/2017 11:5 6 AM PRODUCTION MACHINE SHOP SUPERVISOR Oxygen Saturation 99% 04/23/2017 11: 56 AM PRODUCTION MACHINE SHOP SUPERVISOR Inhaled Oxygen Concentration - - Weight 118.1 kg (260 lb 4.8 oz) 04/23/2017 5:41 AM PRODUCTION MACHINE SHOP SUPERVISOR Height 170.2 cm (5' 7) 04/23/2017 5:41 AM PRODUCTION MACHINE SHOP SUPERVISOR Body Mass Index 40.77 04/23/2017 5:41 AM PRODUCTION MACHINE SHOP SUPERVISOR Plan of Treatment Health Maintenance Due Date [...] this topic Insurance HEALTH PLAN Care Teams Document Processor Relationship Specialty Start Date End Date Roland Locke MD [address] [place] [id number] PCP - General Family Medicine 04/23/17 Mai Koroma, RN Registered Nurse 04/23/17
--- OUTSIDE RECORDS SUMMARY | 2024-09-08 18:24 | XMS_ITS | Clinical Summary ---
Author Organization [facility] Address [address] [place] [address] Care Team Providers Care Corporate Development Manager Name Role Phone None, Provider MD Primary Care Provider Unavaila ble Allergies No known active allergies Medications loratadine (CLARITIN) 10 MG tablet Take 1 tablet (10 mg total) by mouth daily. Active albuterol sulfate HFA 108 (90 Base) MCG/ACT inhaler Inhale 2 puffs into the lungs every 4 (four) hours as needed for Wheezing. 8.5 g 09/12/2023 Active fluconazole (DIFLUCAN) 150 MG tablet Take 1 tablet (150 mg total) by mouth once. Active loratadine (CLARITIN) 10 MG tablet Take 1 tablet (10 mg total) by mouth daily. 30 tablet 06/17/2024 Active Encounters Date Type Department Care Team Description 06/17/2024 9:19 PM CDT - 06/17/2024 10:12 PM CDT Emergency [facility] [address] [place] [address] [place] [id number] Cristian Rossi MD Facial Pain Discharge Disposition: Home or Self Care (Routine Discharge) 06/17/2024 Travel from Last 3 Months Social History Tobacco Use Types Packs/Day Years Used Date Smoking Tobacco: Never Smokeless Tobacco: Never Tobacco Cessation:Counseling Given: Not Answered Alcohol Use Standard Drinks/Week Comments Not Currently 0 (1 standard drink = 0.6 oz pur e alcohol) Comments No Sex and Gender Information Value Date Recorded Sex Assigned at Female 06/17/2024 9:25 PM CDT Legal Sex Female 5:20 PM CDT Gender Identity Not on file Sexual Orientation Not on file Last Filed Vital Signs Vital Sign Reading Time Taken Comments Blood Pressure 135/95 06/17/2024 9:25 PM CDT Pulse 82 06/17/2024 9:25 PM CDT Temperature 36.7 C (98.1 F) 06/17/2024 9:25 PM CDT Respiratory Rate 18 06/17/2024 9:25 PM CDT Oxygen Saturation 100% 06/17/2024 9:25 PM CDT Inhaled Oxygen Concentration - - Weight 119.7 kg (263 lb 12.8 oz) 06/17/2024 9:28 PM CDT Height 175.3 cm (5' 9) 06/17/2024 9:28 PM CDT Body Mass Index 38.96 06/17/2024 9:28 PM CDT Plan of Treatment Health Maintenance Due Date Last Done Comments Cervical Cancer Screening Pa p Smear (Age 30 to 64) Every 3 Years 1994 Annual Physical 1997 Hepatitis C 2012 DTaP, Tdap and Td Vaccines ( 1 - Tdap) 2013 Hepatitis B Vaccines (1 of 3 - 19+ 3-dose series) 2013 COVID-19 Vaccine (2023-2 5 season) 2023 Cervical Cancer Screening Pa p with HPV Testing (Age 30 to 64) Every 5 Years 2024 Cervical Cancer Screening with HPV 2024 HPV Vaccines Aged Out No longer eligi ble based on patient's age to complete this topic Meningococcal B Vaccine Aged Out No l onger eligible based on patient's age to complete this topic Meningococcal Vaccine Aged Out No carlos garland eligible based on patient's age to complete this topic Pneumococcal Vaccine: Pediat rics (0 to 5 Years) and At-Risk Patients (6 to 49 Years) Aged Out No longer eligible b ased on patient's age to complete this topic RSV Immunizations Under 20 Months Aged Out No longer eligible based on patient's age to complete this topic Procedures Procedure Name Priority Date/Time Associated Diagnosis Comments TEST URINE STAT 06/17/2024 9:43 PM CDT from Last 3 Months Results * TEST URINE (06/17/2024 9:43 PM CDT) URINE HCG TEST NEGATIVE 06/17/2024 9:55 PM CDT [facility] SPECIFIC GRAVITY 1.030 06/17/2024 9:55 PM CDT [facility] URINE SPECIMEN FROM URETHRA / Unknown 06/17/2024 9:43 PM CDT us Ag Escobedo MD URINE ORDERABLES Final Result [facility] [address] [place] [address], from Last 3 Months Care Teams Corporate Development Manager Relationship Specialty Start Date End Date None, Provider, PCP - General UNKNOWN PHYSICIAN SPECIALTY 09/12/23
[2024-09-08 18:37] LABS: Alanine Aminotransferase 43 U/L (6-35); Albumin Level 4.7 g/dL (3.5-5.1); Alkaline Phosphatase 97 U/L (38-126); Anion Gap 8 mmol/L (4-12); Aspartate Amino Transferase 37 U/L (14-36); Bilirubin,Total 0.7 mg/dL (0.2-1.3); Blood Urea Nitrogen 11 mg/dL (7-17); Calcium 9.1 mg/dL (8.4-10.2); Carbon Dioxide 24 mmol/L (22-30); Chloride 104 mmol/L (98-107); Estimated CRCL calculation 110 ml/min; Estimated Glomerular Filt Rate > 60; Glucose 141 mg/dL (65-110); Osmolality Calculated 283 mOsm/kg (285-295); Potassium 4.1 mmol/L (3.4-5.0); Sodium 136 mmol/L (137-145); Total Protein 7.7 g/dL (6.3-8.2)
--- NOTE | 2024-09-08 18:38 | ED.SYNCOPE ---
HPI - Syncope General Chief Complaint: Syncope Stated Complaint: fall/head injury Time Seen by Provider: 09/08/24 18:01 Source: patient and family Mode of arrival: ambulatory Limitations: no limitations History of Present Illness HPI narrative: this is a 29-year-old female with history of pre diabetes currently not on a medication had a fainting spell hit her head and cause laceration to her right upper scalp area no other injuries noted patient with no nausea or vomiting no blurry vision no headache. complaint: loss of consciousness Onset (ago): hour(s) Duration of episode: 10 -: second(s) Related Data Allergies Allergy/AdvReac Type Severity Reaction Status Date / Time No Known Allergies Allergy Verified 09/08/24 17:58 Review of Systems Review of Systems: All systems reviewed & are unremarkable except as noted in HPI and below PMFSH Past Medical History Medical History Depression Diabetes Surgical History Surgical History History of section Hx of cholecystectomy Family History Family History Other Diabetes mellitus Social History Social History Smoking status: Never smoker Alcohol intake: current Gender identity (if verbalized by the patient): Female Exam Const: General: healthy appearing and no acute distress Orientation/consciousness: patient oriented x3 Limitations: no limitations HENMT: Head: normal to inspection Eyes: Conjunctivae: conjunctivae normal Pupils: Equal, round and reactive pupils present EOM: EOMs intact bilaterally Neck: Neck: normal visual inspection Chest: Chest palpation & inspection: normal inspection of the chest Resp: Effort & Inspection: normal respiratory effort Auscultation: clear to auscultation bilaterally Cardio: Rate: regular rate Rhythm: regular rhythm GI: GI Palp: Yes Soft to palpation Auscultation: normal bowel sounds Back/Spine/Pelvis: Back: no CVA tenderness Skin: Other: 2.5cm non gaping laceration right frontal scalp area Neuro: General: patient oriented x3, moves all extremities, no meningeal signs and no focal motor deficits Cranial nerves: Yes Nystagmus not present Speech: normal speech Gait exam (Neuro): Normal gait present Extrem: General: normal to inspection, no clubbing, cyanosis or edema and no pedal edema Course Course Emergency Course: CT scan of the brain performed shows no acute abnormalities under Dermabond was used to laceration patient was updated with her at a tetanus with Adacel EKG shows sinus rhythm with no ST or T changes blood count and CBC and CMP were obtained and reviewed with patient. Vital Signs Vital signs: Vital Signs Temperature 36.6 C 09/08/24 17:40 Pulse Rate 107 H 09/08/24 17:40 Respiratory Rate 18 09/08/24 17:40 Blood Pressure 139/91 H 09/08/24 17:40 Pulse Oximetry 100 09/08/24 17:40 Oxygen Delivery Room Air 09/08/24 17:40 Temperature 36.6 C 09/08/24 17:40 Pulse Rate 107 H 09/08/24 17:40 Respiratory Rate 18 09/08/24 17:40 Blood Pressure 139/91 H 09/08/24 17:40 Pulse Oximetry 100 09/08/24 17:40 Oxygen Delivery Room Air 09/08/24 17:40 Procedures Laceration Laceration 1: Date: 09/08/24 Time: 18:42 Site: scalp Side (If applicable): right Size (cm): 2.5 Description: linear Depth: simple, single layer Pre-repair: wound explored, irrigated and irrigated extensively ====== Skin Level ====== Skin layer closed with: dermabond ====== Subcutaneous Layer ====== ====== Muscle Layer ====== ====== Tendon Layer ====== MDM - Syncope Lab Data 09/08/24 18:14 09/08/24 18:15 Labs: Lab Results 09/08/24 09/08/24 09/08/24 Range/Units 17:50 18:14 18:15 WBC 13.9 H (4.8-10.8) K/mm3 RBC 4.88 (4.20-5.40) M/mm3 Hgb 14.4 (12.0-15.0) g/dL Hct 43.4 (35.0-49.0) % MCV 88.9 (78.0-102.0) fL MCH 29.5 (27.0-31.0) pg MCHC 33.2 (32-36) g/dL RDW 12.3 (11.6-14.4) % Plt Count 277 (150-420) K/mm3 MPV 10.5 (9.2-11.8) fl Immature Gran % (Auto) 0.5 H (0.0-0.0) % Neut % (Auto) 75.2 H (50.0-70.0) % Lymph % (Auto) 17.2 L (18.0-42.0) % [place] % (Auto) 5.8 (2.0-11.0) % Eos % (Auto) 0.7 L (1.0-6.0) % Baso % (Auto) 0.6 (0.0-1.0) % Lymph # (Auto) 2.40 (1.10-4.50) K/mm3 [place] # (Auto) 0.81 (0.10-0.90) K/mm3 Eos # (Auto) 0.10 (0.02-0.50) K/mm3 Baso # (Auto) 0.08 (0.00-0.10) K/mm3 Abs Immat Gran (auto) 0.07 H (0.00-0.00) K/mm3 Absolute Neuts (auto) 10.47 H (1.70-7.20) K/mm3 Absolute Nucleated RBC 0.00 (0.00-0.00) K/mm3 Nucleated RBC % 0.0 (0-0.0) % Sodium 136 L (137-145) mmol/L Potassium 4.1 (3.4-5.0) mmol/L Chloride 104 (98-107) mmol/L Carbon Dioxide 24 (22-30) mmol/L Anion Gap 8 (4-12) mmol/L BUN 11 (7-17) mg/dL Creatinine 0.92 (0.7-1.0) mg/dL Estim Creat Clear Calc 110 ml/min Estimated GFR > 60 (59 - ) Glucose 141 H (65-110) mg/dL POC Capillary Glucose 132 H (65-105) mg/dl Calculated Osmolality 283 L (285-295) mOsm/kg Calcium 9.1 (8.4-10.2) mg/dL Total Bilirubin 0.7 (0.2-1.3) mg/dL AST 37 H (14-36) U/L ALT 43 H (6-35) U/L Alkaline Phosphatase 97 (38-126) U/L Total Protein 7.7 (6.3-8.2) g/dL Albumin 4.7 (3.5-5.1) g/dL Critical Care Time Critical Care Time Critical Care Time: No Discharge Plan Discharge Clinical Impression: Laceration Syncope Qualifiers: Syncope type: unspecified Qualified Code(s): R55 - Syncope and collapse Patient Disposition: Home Condition: Stable Instructions: Antibiotic Form, Laceration (ED), Syncope (ED) Additional Instructions: advised to follow with primary care physician within 1 week for further evaluation and treatment. Patient Language: Cymraes Prescriptions: No Action fluconazole [Diflucan] 150 mg tablet 150 mg PO ONCE Qty: 1 0RF Rx Instructions: as a single dose nystatin 100,000 unit/mL suspension 3 ml PO QID 10 Days Qty: 120 0RF Rx Instructions: administer 1/2 of dose in each side of the mouth Follow-up/Referrals: Byron Anthony MD [Primary Care Provider] -
[2024-09-08] MEDS: TETANUS,DIPHTHERIA,AC PERTUSSIS ADULT 0.5 ML (ADACEL) IM (18:44)
== END 2024-09-08 18:46 | disposition home or self-care (01) ==
PROVIDERS: Emergency Provider Emergency Medicine; PCP Family Medicine
DX: S01.01XA Laceration without foreign body of scalp, initial encounter (principal); E11.9 Type 2 diabetes mellitus without complications; R55 Syncope and collapse; W18.30XA Fall on same level, unspecified, initial encounter; Z23 Encounter for immunization
CPT/HCPCS: 12001; 36415; 70450; 80053; 82948; 85025; 90471; 90715; 93005; 99284